=== PATIENT | female | born 1980 | race Caucasian/White ===

== ENCOUNTER 2016-05-30 00:10 | Emergency (ER) | payer OTHER ==
[2016-05-30 00:20] VITALS: BP 137/94
--- NOTE | 2016-05-30 00:31 | ER Document Report ---
ED Medical Screen (RME) - General Stated Complaint: WEAKNESS Time seen by provider: 00:27 Mode of Arrival: Wheelchair Information source: Patient Notes: 36-year-old female presents to ED for increased weakness due to illness. She states that the weakness has slowly progressed over the last week with numbness on left side. She states she's taken all of her normal medications. She states she is still able to work and took one of her gilenya,and neurontin and cold medicines after work today. States she got home from work about 8:00 and she's taken this since she got home. Last menstrual period 05/05/2016. I have greeted and performed a rapid initial assessment of this patient. A comprehensive ED assessment and evaluation of the patient, analysis of test results and completion of medical decision making process will be conducted by an additional ED providers. Physical Exam - Vital signs Vitals: Temp Pulse Resp BP Pulse Ox 97.9 F 70 18 137/94 H 100 05/30/16 00:15 05/30/16 00:15 05/30/16 00:15 05/30/16 00:15 05/30/16 00:15 Course - Vital Signs Vital signs: Temp Pulse Resp BP Pulse Ox 97.9 F 70 18 137/94 H 100 05/30/16 00:15 05/30/16 00:15 05/30/16 00:15 05/30/16 00:15 05/30/16 00:15
== END 2016-05-30 02:00 | disposition left against medical advice (07) ==
LOC: ER 00:10
DX: R53.1 Weakness (principal); R20.0 Anesthesia of skin; Z79.899 Other long term (current) drug therapy; Z53.20 Procedure and treatment not carried out because of patient's decision for unspecified reasons
CPT/HCPCS: 99281